=== PATIENT | male | born 1955 | race Caucasian/White ===

== ENCOUNTER 2018-09-30 00:56 | Emergency (ER) | payer BC ==
[~2018-09-30] VITALS: Ht 180.3 cm; Wt 81.6 kg
[2018-09-30] MEDS ORDERED: KEFLEX500 MG PO (05:38)
[2018-09-30] MEDS ORDERED: ZOFRAN ODT4 MG SL (05:38)
== END 2018-09-30 03:06 | disposition home or self-care (01) ==
LOC: ER 00:56
DX: S01.81XA Laceration without foreign body of other part of head, initial encounter (principal); S19.89XA Other specified injuries of other specified part of neck, initial encounter; F10.10 Alcohol abuse, uncomplicated; W45.8XXA Other foreign body or object entering through skin, initial encounter; Y93.01 Activity, walking, marching and hiking; Y92.413 State road as the place of occurrence of the external cause; Y99.8 Other external cause status